=== PATIENT | male | born 1955 | race Caucasian/White ===

== ENCOUNTER 2017-09-06 13:52 | Outpatient (CLI) | payer OTHER ==
[2015-04-30 15:42] VITALS: BP 98/50
--- NOTE | 2017-09-14 09:22 | OP Clinic Progress Note ---
REASON FOR VISIT: This 62-year-old man is seen with some disabilities. He is accompanied by his sister. He has bilateral fairly strong buzzing and ringing tinnitus. It is about equal in both ears or at least he is not able to lateralize it. He has significant disequilibrium. By history, he has several areas particularly of spinal stenosis in the cervical area. He has discomfort in his neck. His neck is tender in the C2 region bilaterally. Both ear canals have a significant amount of cerumen. This is cleaned under the microscope in the office. Both eardrums have no perforation. They are clear and clean. There is no middle ear fluid. However, the umbo of both eardrums is fairly significantly retracted with apparent tension in the middle ear. PLAN: I went over the possibility of a myringotomy that may or may not slightly ameliorate some of his symptoms. There is an extremely small, less than 1%, chance of a permanent perforation is gone over with the patient and his sister. They may return on a p.r.n. basis. Otherwise, they will consider going ahead with neck surgery. Again, they can return on a p.r.n. basis. cc: Dr. Jose Antonio SAMS
== END 2017-09-06 13:53 ==
LOC: ENT 13:52
PROVIDERS: ATTEND Otolaryngology
DX: H61.23 Impacted cerumen, bilateral (principal); H93.13 Tinnitus, bilateral
CPT/HCPCS: 69210; G0463

== ENCOUNTER 2017-12-19 12:00 | Inpatient (IN) | payer OTHER ==
[2017-12-19] MEDS ORDERED: ACETAMINOPHEN 325 MG TABLET PO PRN (12:18)
[2017-12-19] MEDS ORDERED: BISACODYL 5 MG TABLET.DR PO PRN (12:18)
--- NOTE | 2017-12-19 12:24 | History and Physical Report ---
History of Present Illnes - History of Present Illness Reason for Visit: gait disturbance and weakness post cervical fusion History of Present Illness: 62yo white male who has been having some cervical neck pain with some increasing balance problem and cordination problems. He was found to have severe multilevel cervical stenosis Patient was advised to have cervical laminectomy and posterior instrumentation fusion He underwent this and is transferred to this institution for rehab services. Patient states that his pain has been doing well. Did have a BM today. Patient does live by himself and does provide for most of his daily living cares by himself with oversite from his siblings. - Past Medical History [employer]: Other (MR with learning disability, hydrocephalus) Musculoskeletal: Other (cervical spondylosis) - Past Surgical History Past Surgical History: Other (cervical fusion, inguinal hernia repair, removal of brain cyst as infant) - Past Family History Mother Family History: Father Family History: Brother 1 Family History: Hypertension - Past Social History Smoke: No Alcohol: None Drugs: None Lives: Alone Domestic Violence: Negative - Health Maintenance Health Maintenance: Cholesterol. denies: Influenza Vaccine, Pneumococcal Vaccine Influenza Vaccine: No Pneumonia Vaccine: No Resuscitation Status: Resusciation Status Resuscitation Status Full Code - Unable to Obtain History Unable to Obtain: No Review of Systems - Review of Systems Constitutional: negative: Fever, Chills, Sweats, Weakness Eyes: negative: pain, vision change ENT: Nose Congestion (mild allergies). negative: Ear Pain, Ear Discharge, Nose Pain, Nose Discharge Respiratory: negative: Cough, Dry, Shortness of Breath, Hemoptysis, SOB with Excertion, Wheezing Cardiovascular: negative: Chest Pain, Palpitations, Orthopnea, Edema, Light Headedness Gastrointestinal: Constipation. negative: Nausea, Vomiting, Abdominal Pain, Diarrhea, Melena, Hematochezia Genitourinary: negative: Dysuria, Frequency, Hematuria Musculoskeletal: Neck Pain, Shoulder Pain. negative: Arm Pain, Back Pain Skin: negative: Rash Neurological: Weakness (stable), Numbness (stable) - Medications/Allergies Allergies/Adverse Reactions: Allergies Allergy/AdvReac Type Severity Reaction Status Date / Time [place] And Derivatives Allergy Verified 12/19/17 16:58 melon Allergy Verified 12/19/17 17:01 Sulfa (Sulfonamide Allergy Verified 04/28/15 12:00 Antibiotics) tree nut Allergy Verified 12/19/17 17:00 Home Medications: Home Medications Acetaminophen [Tylenol] 650 mg PO Q6 PRN 12/19/17 Bisacodyl [Dulcolax] 10 mg RC QD PRN 12/19/17 Polyethylene Glycol 3350 [Miralax] 17 gm PO 1100 12/19/17 Current Inpatient Medications: Current Inpatient Medications Enoxaparin Sodium (Lovenox) 30 mg SQ QD TODD Stop: 01/01/18 13:01 Exam - Exam General: Alert, Oriented to Person, Oriented to Place, Oriented to Time, Cooperative, Mild distress HEENT: Atraumatic, Nose Mucous membr. moist/[place]hawk, Dentition Normal Neck: Normal Range of Motion. No: Stridor, Lymphadenopathy Carotids: Wnl Thyroid: wnl Lungs: Clear to auscultation, Normal air movement, Speaks full Sentences. No: Wheezes, Rales, Rhonchi, Stridor Cardiovascular: Regular rate, Normal S1, Normal S2, No murmurs, Gallops Abdomen: Normal bowel sounds, Soft, No tenderness, No masses Integumentary: Normal, [place], Warm Extremities: No clubbing, No cyanosis, No edema Neurological: Normal speech, Strength Equal Bilat, Normal tone, Sensation intact, Cranial nerves 3-12 NL, Reflexes 2+ Psych/Mental Status: Mental status NL, Mood NL, Appropriate Affect. No: Intact Judgment Assessment/Plan - Assessment/Plan (1) Gait disturbance Status: Acute Current Visit: Yes Assessment: Patient will be started on physical and occupational therapy. (2) Status post cervical spinal fusion Status: Acute Current Visit: Yes Assessment: Patient will be started on physical and occupational therapy. Will watch patient closely for any constipation issues. VTE Assessment - RISK FACTOR SCORE VTE RISK FACTOR SCORES: AGE 40-60 YEARS, ANTICIPATED BED CONFINEMENT OR IMMOBILIZATION > 24 HOURS - RISK VTE MODERATE RISK: SCORE OF 2 (RISK PROXIMAL DVT 2-4%) PROPHYAXIS NEEDED
[2017-12-19] MEDS: ENOXAPARIN SODIUM 30 MG/0.3 ML DISP.SYRIN SQ SCH (14:54)
[2017-12-19 15:35] VITALS: BMI 17.9
[2017-12-19] MEDS: DOCUSATE SODIUM 100 MG CAPSULE PO SCH (21:37)
[2017-12-20] MEDS: POLYETHYLENE GLYCOL 3350 17 GM POWD.PACK PO SCH (11:30)
[2017-12-20] MEDS: DOCUSATE SODIUM 100 MG CAPSULE PO SCH (11:30)
[2017-12-20] MEDS: ENOXAPARIN SODIUM 30 MG/0.3 ML DISP.SYRIN SQ SCH (14:12)
[2017-12-21 07:43] LABS: eGFR (Non-African) > 60
[2017-12-21] MEDS: ENOXAPARIN SODIUM 30 MG/0.3 ML DISP.SYRIN SQ SCH (13:57)
[2017-12-21] MEDS: POLYETHYLENE GLYCOL 3350 17 GM POWD.PACK PO SCH (13:57)
[2017-12-21 16:41] LABS: BASO % 0.8 % (0.0-1.5); EOS % 5.3 % (0.0-6.8); LYMPH ABS # 1.35 thou/uL (0.60-4.00); MCV 89.8 fL (80.0-100.0); MONOCYTE % 9.8 % (0.0-11.0); MONOCYTE ABS # 0.83 thou/uL (0.00-0.90); PLATELET COUNT 307 thou/uL (130-400)
--- NOTE | 2017-12-22 08:47 | Discharge Summary ---
Discharge Summary - Discharge Sumary History of Present Illness: 62yo white male who has been having some cervical neck pain with some increasing balance problem and cordination problems. He was found to have severe multilevel cervical stenosis Patient was advised to have cervical laminectomy and posterior instrumentation fusion He underwent this and is transferred to this institution for rehab services. Patient states that his pain has been doing well. Did have a BM today. Patient does live by himself and does provide for most of his daily living cares by himself with oversite from his siblings. Condition at Discharge: Stable Home Medications: Ambulatory Orders Medication Instructions Recorded Acetaminophen [Tylenol] 650 mg PO Q6 PRN 12/19/17 Bisacodyl [Dulcolax] 10 mg RC QD PRN 12/19/17 Bisacodyl [Dulcolax] 10 mg PO DAILY PRN tablet. 12/22/17 Consultations this Visit: None Procedures this Visit: None Allergies/Adverse Reactions: Allergies Allergy/AdvReac Type Severity Reaction Status Date / Time [place] And Derivatives Allergy Verified 12/19/17 16:58 melon Allergy Verified 12/19/17 17:01 Sulfa (Sulfonamide Allergy Verified 04/28/15 12:00 Antibiotics) tree nut Allergy Verified 12/19/17 17:00 Discharge Summary: Patient did very well during his skilled course. Patient did participate with physical and occupational therapy well. Patient pain was well controlled during his hospital stay. Patient did not have any postoperative complications that he was aware. However several days after he received he did developed some weakness in his left upper extremity. He did not feel that he could movement as well as the had previously. Patient denies any numbness. Patient surgeon was called and was advised that he probably had a C5 nerve palsy. No specific intervention needed be done at this time. At the 24 hours the symptoms did improve some but they did persist to the time of discharge. Patient BMwere normal. - Final Diagnosis (1) Gait disturbance Problems: improved (2) Status post cervical spinal fusion Problems: stable
[2017-12-22 10:04] VITALS: BP 125/58
--- NOTE | 2018-01-02 21:35 | Inpatient Progress Note ---
Subjective - Required Recertification Statement I anticipate X number of days because-include discharge plan: 3 days - Review of Systems Events since last encounter: Today however he did developed some weakness to his left upper extremity. Patient denies any numbness. Patient denies any acute neck pain. Patient stated her symptoms do seem to be improved at this time some. Patient has been having bowel movements normally. Patient has improved. Appetite has been good. Patient pain has been well controlled. Objective - Exam Vitals and I&O: Vital Signs Temp 98.4 F 12/22/17 09:00 Pulse 77 12/22/17 09:00 Resp 16 12/22/17 09:00 BP 125/58 12/22/17 09:00 Pulse Ox 97 12/22/17 09:00 General: Alert, Oriented to Person, Oriented to Place, Oriented to Time, Cooperative Lungs: Clear to auscultation, Normal air movement, Speaks full Sentences. No: Wheezes, Rales, Rhonchi Cardiovascular: Regular rate, Normal S1, Normal S2, No murmurs Extremities: No clubbing, No cyanosis, No edema Skin: Normal, [place], Warm, Decreased Turgor Neurological: Left Sided Weakness (LUE), Other (patient did have some coordination difficulties also. With the left upper extremity) Psych/Mental Status: Mental status NL, Mood NL - Results Results: Laboratory Results WBC Comment 8.42 thou/uL (4.00-12.00) 12/21/17 06:30 RBC 4.23 mil/uL (3.80-5.80) 12/21/17 06:30 Hemoglobin (Send Out) 13.1 g/dL (12.0-18.0) 12/21/17 06:30 Hct (Send Out) 38.0 % (37.0-53.0) 12/21/17 06:30 MCV (Send Out) 89.8 fL (80.0-100.0) 12/21/17 06:30 MCH 31.0 pg (28.0-34.0) 12/21/17 06:30 MCHC (Send Out) 34.5 g/dL (30.0-36.0) 12/21/17 06:30 RDW Coeff of Selina 12.0 % (11.3-14.7) 12/21/17 06:30 Plt Count 307 thou/uL (130-400) 12/21/17 06:30 Absolute Lymphs (auto) 1.35 thou/uL (0.60-4.00) 12/21/17 06:30 Absolute Monos (auto) 0.83 thou/uL (0.00-0.90) 12/21/17 06:30 Absolute Basos (auto) 0.07 thou/uL (0.00-0.50) 12/21/17 06:30 Neutrophils % 68.0 % (39.0-79.0) 12/21/17 06:30 Absolute Neutrophils 5.73 thou/uL (1.50-7.70) 12/21/17 06:30 Lymphocytes 16.0 % (16.0-50.0) 12/21/17 06:30 Monocytes 9.8 % (0.0-11.0) 12/21/17 06:30 Absolute Eosinophils 0.45 thou/uL (0.00-0.60) 12/21/17 06:30 Basophilia % 0.8 % (0.0-1.5) 12/21/17 06:30 Eosinophil Count 5.3 % (0.0-6.8) 12/21/17 06:30 Sodium 134 mmol/L (136-145) L 12/21/17 06:30 Potassium 4.0 mmol/L (3.5-5.1) 12/21/17 06:30 Chloride 96 mmol/L (98-107) L 12/21/17 06:30 Carbon Dioxide 31 mmol/L (22-30) H 12/21/17 06:30 BUN 20 mg/dL (9-20) 12/21/17 06:30 Creatinine 0.80 mg/dL (0.66-1.25) 12/21/17 06:30 Estimated Creat Clear 69 12/21/17 06:30 Est GFR ( Amer) > 60 (60-) 12/21/17 06:30 Est GFR (Non-Af Amer) > 60 (60-) 12/21/17 06:30 Glucose 85 mg/dL (74-106) 12/21/17 06:30 Calcium 9.1 mg/dL (8.4-10.2) 12/21/17 06:30 Total Bilirubin 0.7 mg/dL (0.2-1.3) 12/21/17 06:30 AST 28 U/L (15-46) 12/21/17 06:30 ALT 31 U/L (13-69) 12/21/17 06:30 Alkaline Phosphatase 60 U/L (38-126) 12/21/17 06:30 Total Protein 6.4 g/dL (6.3-8.2) 12/21/17 06:30 Albumin 3.5 g/dL (3.5-5.0) 12/21/17 06:30 Assessment/Plan - Assessment/Plan (1) Gait disturbance Status: Acute Assessment: improved (2) Status post cervical spinal fusion Status: Acute Assessment: Patient apparently has developed five nerve palsy. In the [place] short time that he is had of his does seem to have improved some. I have talked with his surgeon and he advised to observation at this time.
== END 2017-12-22 10:30 | disposition home health service (06) | DRG 93 ==
LOC: SOUTH 12:00
PROVIDERS: ADMIT Family Medicine; ATTEND Family Medicine
DX: R26.89 Other abnormalities of gait and mobility (principal); Z98.890 Other specified postprocedural states
CPT/HCPCS: 80053; 85025; 94799; J1650

== ENCOUNTER 2018-01-08 17:17 | Emergency (ER) | payer OTHER ==
[2018-01-08 17:42] VITALS: BP 116/70
--- NOTE | 2018-01-08 17:43 | ED Physician Documentation ---
General Adult - HISTORIAN Historian: patient - HPI Stated Complaint: fever, vomiting Chief Complaint: Fever Onset: hours (2) Timing: better Severity: mild Further Comments: yes (He had a cervical neck surgery 12.18.2017. He had his physical therapy at home today and after states he started to run a fever and directly vomited x5 after. He denies any neck pain or change in his neck ROM . Denies any incisional drainage. No abdominal pain. No diarrhea. No sick contacts) - ROS CONST: fever EYES/ENT: denies: sore throat, nasal drainage, nasal congestion CVS/RESP: denies: chest pain, shortness of breath, cough GI/: vomiting, nausea. denies: abdominal pain, problems urinating, diarrhea MS/SKIN/LYMPH: denies: rash NEURO/PSYCH: denies: headache - PAST HX Past History: other (cervical spine surgery ) Immunizations: UTD Allergies/Adverse Reactions: Allergies Allergy/AdvReac Type Severity Reaction Status Date / Time [place] And Derivatives Allergy Verified 01/08/18 17:42 melon Allergy Verified 01/08/18 17:42 Sulfa (Sulfonamide Allergy Verified 01/08/18 17:42 Antibiotics) tree nut Allergy Verified 01/08/18 17:42 Home Medications: Ambulatory Orders Medication Instructions Recorded Acetaminophen [Tylenol] 650 mg PO Q6 PRN 12/19/17 Bisacodyl [Dulcolax] 10 mg RC QD PRN 12/19/17 Bisacodyl [Dulcolax] 10 mg PO DAILY PRN tablet. 12/22/17 - SOCIAL HX Smoking History: non-smoker Alcohol Use: none Drug Use: none - FAMILY HX Family History: No - VITAL SIGNS Vital Signs: Vital Signs Temp Pulse Resp BP Pulse Ox 102.3 F H 100 H 14 116/70 96 01/08/18 17:36 01/08/18 17:36 01/08/18 17:36 01/08/18 17:36 01/08/18 17:36 - REVIEWED ASSESSMENTS Nursing Assessment Reviewed: Yes Vitals Reviewed: Yes Progress - Progress Progress: 1746: and spouse would like to wait for Flu results before further tests are ordered DG 1809: Vomiting in room requesting nausea med now DG 191: nausea has resolved he is requesting to go home. He denies any neck pain. Feels like he has more energy. Is asking to go home. Sister is aware of results and agreeable DG General Adult Physical Exam - PHYSICAL EXAM GENERAL APPEARANCE: no distress EENT: eye inspection normal, ENT inspection normal NECK: normal inspection, other (incision along cervical spine intact - no redness no drainage no pain - limited ROM (he and state) from surgery no decrease since today ) RESPIRATORY: no resp distress, chest non-tender, breath sounds normal CVS: reg rate & rhythm, heart sounds normal, equal pulses ABDOMEN: soft, normal bowel sounds, no distension, non-tender BACK: normal inspection SKIN: warm/dry EXTREMITIES: non-tender NEURO: oriented X3 Discharge Clincal Impression: Nausea & vomiting Qualifiers: Vomiting type: unspecified Vomiting Intractability: unspecified Qualified Code(s): R11.2 - Nausea with vomiting, unspecified Referrals: Jose Antonio Garcia MD [Primary Care Provider] - 2 Days Comments: 1. Increase fluids 2. OTC meds for fever as needed 3. Garden diet 4. Zofran 4 mg take 1 by mouth every 8 hours as needed for nausea 5. Call surgeon on am if no improvement 6. Return to ER for any concerns Condition: Stable Disposition: 01 HOME, SELF-CARE Decision to Admit: NO Date of Decison to Admit: 01/08/18 Decision Time: 19:28
[2018-01-08] MEDS: ONDANSETRON HCL/PF 4 MG/ 2ML VIAL IVP ONE (18:25)
[2018-01-08] MEDS: 0.9 % SODIUM CHLORIDE 1,000 ML IV ONE (18:25)
[2018-01-08 18:33] LABS: EOSINOPHILS % 1.8 % (0.0-6.8); MEAN CORPUSCULAR HEMOGLOBIN 30.9 pg (28.0-34.0); MONOCYTES % 4.6 % (0.0-11.0)
[2018-01-08 18:34] LABS: BASOPHILS % 0.2 (0.0-1.5); NEUTROPHILS # 9.4 # k/uL (1.4-7.7)
[2018-01-08 18:38] LABS: eGFR (Non-African) > 60
[2018-01-09 08:07] LABS: APPEARANCE,URINE CLOUDY (CLEAR); COLOR,URINE YELLOW (YELLOW)
[2018-01-09 08:08] LABS: OCCULT BLOOD,URINE NEGATIVE (NEGATIVE); PH URINE 7.5 (5.0 - 8.0)
== END 2018-01-08 19:35 | disposition home or self-care (01) ==
LOC: ED 17:17
DX: R11.2 Nausea with vomiting, unspecified (principal); Z98.890 Other specified postprocedural states
CPT/HCPCS: 80053; 81002; 85025; 87040; 87400; J2405; J7030; 96365; 96375; 99284; S1016

== ENCOUNTER 2018-10-17 19:17 | Emergency (ER) | payer OTHER ==
--- NOTE | 2018-10-17 19:38 | ED Physician Documentation ---
General Adult - HISTORIAN Historian: patient - HPI Stated Complaint: blood per rectum, hx hemorrhoids Chief Complaint: General Adult Onset: days ago Timing: still present Severity: moderate Further Comments: yes (Pt is a 63 yo male who has seen red blood with bm's several times this week. The first occurred 3 days ago with a large bm. Pt has had blood with each bm since. Pt has hx autism and is a sub-optimal historian. He says that he has had hemorrhoids. He has not had pain with these bloody bm's. He denies lightheadedness, n/v.) - ROS CONST: no problems EYES/ENT: none CVS/RESP: none GI/: other (bloody bm's) MS/SKIN/LYMPH: none - PAST HX Past History: other (autism) Allergies/Adverse Reactions: Allergies Allergy/AdvReac Type Severity Reaction Status Date / Time [place] And Derivatives Allergy Verified 10/17/18 19:38 melon Allergy Verified 10/17/18 19:38 Sulfa (Sulfonamide Allergy Verified 10/17/18 19:38 Antibiotics) tree nut Allergy Verified 10/17/18 19:38 Home Medications: Ambulatory Orders Medication Instructions Recorded NK 10/17/18 - SOCIAL HX Smoking History: non-smoker Alcohol Use: none Drug Use: none - FAMILY HX Family History: No - VITAL SIGNS Vital Signs: Vital Signs Temp Pulse Resp BP Pulse Ox 116/70 01/08/18 19:35 - REVIEWED ASSESSMENTS Nursing Assessment Reviewed: Yes Vitals Reviewed: Yes Progress - Progress Progress: Transfer to [facility]. Dr. Friend General Adult Physical Exam - PHYSICAL EXAM GENERAL APPEARANCE: no distress EENT: pharynx normal NECK: normal inspection, supple RESPIRATORY: no resp distress, chest non-tender, breath sounds normal CVS: reg rate & rhythm, heart sounds normal ABDOMEN: soft, no organomegaly, normal bowel sounds, no abdominal bruit, no distension RECTAL: normal rectal tone, other (red blood per rectum). No: hemorrhoids BACK: normal inspection, no CVA tenderness SKIN: warm/dry, normal color EXTREMITIES: non-tender, normal range of motion, no evidence of injury NEURO: oriented X3, motor nml, sensation nml Discharge Clincal Impression: Rectal bleeding Referrals: Jose Antonio Garcia MD [Primary Care Provider] - Condition: Stable Disposition: XF T-TRM HOSP Decision to Admit: NO Decision Time: 21:47
[2018-10-17 23:15] VITALS: BP 151/70
[2018-10-18 07:02] LABS: APPEARANCE,URINE CLEAR (CLEAR); COLOR,URINE YELLOW (YELLOW); OCCULT BLOOD,URINE NEGATIVE (NEGATIVE); UROBILINOGEN URINE 0.2 Eu (0.2-1.0)
[2018-10-18 07:03] LABS: BASOPHILS % 0.3 % (0.0-1.5); NEUTROPHILS # 2.7 # k/uL (1.4-7.7)
[2018-10-18 07:05] LABS: eGFR (Non-African) > 60
== END 2018-10-17 22:45 | disposition short-term general hospital (02) ==
LOC: ED 19:17
DX: K62.5 Hemorrhage of anus and rectum (principal)
CPT/HCPCS: 80053; 81002; 85025; 85610; 85730; 99281; 99283; S1016